=== PATIENT | female | born 1935 | race Caucasian/White ===

== ENCOUNTER 2018-09-28 21:57 | Observation (INO) | payer OTHER, MEDICARE ==
[2018-09-28 22:39] LABS: Absolute Monocytes 1.4 K/uL (0.1-1.3); Absolute Neutrophil 7.5 K/uL (1.8-8.0); Basophils % 0.5 % (0-1.3); Hematocrit 35.1 % (36.0-45.0); Lymphocytes % 9.7 % (15.3-44.8); MPV 8.4 fL (7.6-11.3); Monocytes % 13.7 % (3.3-12.3); RBC Red Blood Cell Count 3.49 M/uL (3.86-4.86)
[2018-09-28 22:44] LABS: Protime INR 1.59
--- NOTE | 2018-09-28 22:57 | EDPHYS ---
Physician Documentation [facility] Name: La Nena Arnold Age: 83 yrs Sex: Female : 1935 Arrival Date: 09/28/2018 Time: 22:00 Bed 3 Private MD: STANISLAV Physician Vipin Yoon HPI: 09/28 22:51 This 83 yrs old Female presents to ER via Wheelchair with complaints of luiz Shortness Of Breath. 22:51 The patient has shortness of breath at rest. Onset: The symptoms/episode began/occurred luiz 3 day(s) ago. Duration: The symptoms are continuous, and are steadily getting worse. The patient's shortness of breath is aggravated by nothing, is alleviated by nothing. Associated signs and symptoms: The patient has no apparent associated signs or symptoms. Severity of symptoms: At their worst the symptoms were. The patient has not experienced similar symptoms in the past. Historical: - Allergies: 22:10 Sulfa (Sulfonamide Antibiotics); ak1 22:10 Plaquenil; ak1 - Home Meds: 22:10 metoprolol tartrate 25 mg Oral tab 1 tab 2 times per day [Active]; apixaban oral 5mg ak1 oral 1 tab 2 times per day [Active]; clonazepam 1 mg Oral tab 1 tab [Active]; imipramine HCl 50 mg Oral tab 2 tabs 2 times per day [Active]; folic acid 1 mg Oral tab 1 tab once daily [Active]; pantoprazole 40 mg oral TbEC 1 tab once daily [Active]; potassium chloride 10 mEq Oral cpER 1 cap once daily [Active]; pravastatin 40 mg oral tab 1 tab once daily [Active]; prolia [Active]; - PMHx: 22:10 afib; Hypertension; Lupus; lymphoma; ak1 - PSHx: 22:10 left knee replacement; ak1 - Immunization history:: Adult Immunizations unknown. - Social history:: Smoking status: Patient/guardian denies using tobacco. - Ebola Screening: : No symptoms or risks identified at this time. - Family history:: not pertinent. ROS: 22:51 Constitutional: Negative for fever, chills, and weight loss, Eyes: Negative for injury, luiz pain, redness, and discharge, ENT: Negative for injury, pain, and discharge, Neck: Negative for injury, pain, and swelling, Respiratory: Negative for shortness of breath, cough, wheezing, and pleuritic chest pain, Abdomen/GI: Negative for abdominal pain, nausea, vomiting, diarrhea, and constipation, Back: Negative for injury and pain, : Negative for injury, bleeding, discharge, and swelling, MS/Extremity: Negative for injury and deformity, Skin: Negative for injury, rash, and discoloration, Neuro: Negative for headache, weakness, numbness, tingling, and seizure, Psych: Negative for depression, anxiety, suicide ideation, homicidal ideation, and hallucinations, Allergy/Immunology: Negative for hives, rash, and allergies, Endocrine: Negative for neck swelling, polydipsia, polyuria, polyphagia, and marked weight changes, Hematologic/Lymphatic: Negative for swollen nodes, abnormal bleeding, and unusual bruising. 22:51 Cardiovascular: Positive for chest pain, palpitations. Exam: 22:51 Constitutional: This is a well developed, well nourished patient who is awake, alert, luiz and in no acute distress. Head/Face: Normocephalic, atraumatic. Eyes: Pupils equal round and reactive to light, extra-ocular motions intact. Lids and lashes normal. Conjunctiva and sclera are non-icteric and not injected. Cornea within normal limits. Periorbital areas with no swelling, redness, or edema. ENT: Nares patent. No nasal discharge, no septal abnormalities noted. Tympanic membranes are normal and external auditory canals are clear. Oropharynx with no redness, swelling, or masses, exudates, or evidence of obstruction, uvula midline. Mucous membranes moist. Neck: Trachea midline, no thyromegaly or masses palpated, and no cervical lymphadenopathy. Supple, full range of motion without nuchal rigidity, or vertebral point tenderness. No Meningismus. Chest/axilla: Normal chest wall appearance and motion. Nontender with no deformity. No lesions are appreciated. Respiratory: Lungs have equal breath sounds bilaterally, clear to auscultation and percussion. No rales, rhonchi or wheezes noted. No increased work of breathing, no retractions or nasal flaring. Abdomen/GI: Soft, non-tender, with normal bowel sounds. No distension or tympany. No guarding or rebound. No evidence of tenderness throughout. Back: No spinal tenderness. No costovertebral tenderness. Full range of motion. Female : Normal external genitalia. Skin: Warm, dry with normal turgor. Normal color with no rashes, no lesions, and no evidence of cellulitis. MS/ Extremity: Pulses equal, no cyanosis. Neurovascular intact. Full, normal range of motion. Neuro: Awake and alert, GCS 15, oriented to person, place, time, and situation. Cranial nerves II-XII grossly intact. Motor strength 5/5 in all extremities. Sensory grossly intact. Cerebellar exam normal. Normal gait. Psych: Awake, alert, with orientation to person, place and time. Behavior, mood, and affect are within normal limits. 22:51 Cardiovascular: Rate: tachycardic, Rhythm: irregularly irregular, Pulses: Pulses are 4+ in bilateral radial, brachial, femoral, popliteal, posterior tibial and and dorsalis pedis arteries.. Heart sounds: normal, normal S1and S2, no S3 or S4, no murmur, no rub, no gallop, Edema: is not appreciated, JVD: is not appreciated. Vital Signs: 22:10 BP 140 / 89; Pulse 152; Resp 18; Temp 98.7(O); Pulse Ox 95% on R/A; Weight 58.06 kg ak1 (R); Height 5 ft. 0 in. (152.40 cm) (R); 23:00 BP 127 / 97; Pulse 149; Resp 30; Pulse Ox 96% on R/A; Pain 0/10; ak1 09/29 00:22 BP 146 / 107; Pulse 111; Resp 25; Pulse Ox 94% on R/A; ak1 00:31 BP 162 / 108; Pulse 115; Resp 27; Pulse Ox 94% on R/A; ak1 00:34 BP 163 / 99; Pulse 113; ak1 01:43 BP 149 / 108; Pulse 106; Resp 26; Pulse Ox 94% on R/A; ak1 03:04 BP 137 / 100; Pulse 104; Resp 22; Temp 98.8; Pulse Ox 98% on 2 lpm NC; Pain 0/10; ak1 09/28 22:10 Body Mass Index 25.00 (58.06 kg, 152.40 cm) ak1 MDM: 09/28 22:12 [facility]:53 Data reviewed: vital signs, nurses notes, lab test result(s), EKG, radiologic studies, luiz plain films. 09/28 22:25 Order name: Basic Metabolic Panel; Complete Time: 23:46 09/28 22:25 Order name: CBC with Diff; Complete Time: 22:53 09/28 22:25 Order name: LFT's; Complete Time: 23:46 09/28 22:25 Order name: Magnesium; Complete Time: 23:46 09/28 22:25 Order name: NT PRO-BNP; Complete Time: 23:46 09/28 22:25 Order name: PT-INR; Complete Time: 22:53 09/28 22:25 Order name: Troponin (emerg Dept Use Only); Complete Time: 23:46 09/28 22:25 Order name: TSH; Complete Time: 23:46 09/28 23:22 Order name: T4 Free; Complete Time: 23:46 [facility] 09/29 00:51 Order name: Urine Culture [facility] 09/29 01:53 Order name: Basic Metabolic Panel [facility] 09/29 01:53 Order name: Basic Metabolic Panel [facility] 09/29 01:53 Order name: CBC with Automated Diff [facility] 09/29 01:53 Order name: CBC with Automated Diff [facility] 09/28 22:25 Order name: XRAY Chest (1 view) 09/28 22:25 Order name: EKG; Complete Time: 22:26 09/28 22:25 Order name: Cardiac monitoring; Complete Time: 22:32 09/28 22:25 Order name: EKG - Nurse/Tech; Complete Time: 22:32 09/28 22:25 Order name: IV Saline Lock; Complete Time: 22:32 09/28 22:25 Order name: Labs collected and sent; Complete Time: 22:32 09/28 22:25 Order name: O2 Per Protocol; Complete Time: 22:32 09/29 01:53 Order name: CONS Physician Consult [facility] 09/29 01:53 Order name: Heart Healthy [facility] 09/29 01:53 Order name: Echo with Doppler [facility] 09/28 22:25 Order name: O2 Sat Monitoring; Complete Time: 22:32 09/28 22:25 Order name: Urine Dipstick-Ancillary (obtain specimen); Complete Time: 00:32 fc Administered Medications: 22:50 Drug: Lopressor 5 mg {Note: 5mg given to hold the other dose per verbal by dr. otf Yoon.} Route: IVP; Site: right antecubital; 22:50 Drug: Digoxin 0.5 mg Route: IVP; Site: right antecubital; ak1 09/29 00:32 Follow up: Response: No adverse reaction ak1 09/28 22:50 Drug: Pepcid 20 mg Route: IVP; Site: right antecubital; ak1 09/29 00:31 Follow up: Response: No adverse reaction ak1 00:32 Drug: Lopressor 5 mg Route: IVP; Site: right antecubital; ak1 01:38 Drug: Rocephin - (cefTRIAXone) 1 grams Route: IVPB; Infused Over: 30 mins; Site: right ak1 antecubital; 01:40 Follow up: IV Status: Completed infusion ak1 01:39 Drug: Lopressor 5 mg Route: IVP; Site: right antecubital; ak1 01:40 Follow up: Response: No adverse reaction ak1 01:39 Drug: Lasix 40 mg Route: IVP; Site: right antecubital; ak1 01:40 Follow up: Response: No adverse reaction ak1 01:39 Drug: Potassium Chloride 20 mEq Route: PO; ak1 01:40 Follow up: Response: No adverse reaction ak1 Disposition: 09/28/18 22:56 Hospitalization ordered by Adrien Huitron for Inpatient Admission. Preliminary diagnosis are Atrial fibrillation and flutter - with rvr, Dyspnea, Unspecified combined systolic (congestive) and diastolic (congestive) heart failure, Pleural effusion in other conditions classified elsewhere, Urinary tract infection, site not specified. - Bed requested for Telemetry/MedSurg (Inpatient). - Status is Inpatient Admission. ak1 - Condition is Fair. - Problem is new. - Symptoms have improved. UTI on Admission? Yes Signatures: Dispatcher [employer] Vipin Clark MD MD cha Chretien, Felicia, RN RN fc Krenek, Amber, RN RN ak1 Garcia, Cindy, RN RN cg Corrections: (The following items were deleted from the chart) 00:46 09/28 22:56 Hospitalization Ordered by Adrien Huitron MD for Inpatient Admission. luiz Preliminary diagnosis is Atrial fibrillation and flutter - with rvr; Dyspnea. Bed requested for Telemetry/MedSurg (Inpatient). Status is Inpatient Admission. Condition is Fair. Problem is new. Symptoms have improved. UTI on Admission? No. luiz 09/29 00:51 00:46 09/28/2018 22:56 Hospitalization Ordered by Adrien Huitron MD for Inpatient luiz Admission. Preliminary diagnosis is Atrial fibrillation and flutter - with rvr; Dyspnea; Unspecified combined systolic (congestive) and diastolic (congestive) heart failure; Pleural effusion in other conditions classified elsewhere. Bed requested for Telemetry/MedSurg (Inpatient). Status is Inpatient Admission. Condition is Fair. Problem is new. Symptoms have improved. UTI on Admission? No. luiz 01:39 00:51 09/28/2018 22:56 Hospitalization Ordered by Adrien Huitron MD for Inpatient cg Admission. Preliminary diagnosis is Atrial fibrillation and flutter - with rvr; Dyspnea; Unspecified combined systolic (congestive) and diastolic (congestive) heart failure; Pleural effusion in other conditions classified elsewhere; Urinary tract infection, site not specified. Bed requested for Telemetry/MedSurg (Inpatient). Status is Inpatient Admission. Condition is Fair. Problem is new. Symptoms have improved. UTI on Admission? Yes. luiz 03:59 01:39 09/28/2018 22:56 Hospitalization Ordered by Adrien Huitron MD for Inpatient ak1 Admission. Preliminary diagnosis is Atrial fibrillation and flutter - with rvr; Dyspnea; Unspecified combined systolic (congestive) and diastolic (congestive) heart failure; Pleural effusion in other conditions classified elsewhere; Urinary tract infection, site not specified. Bed requested for Telemetry/MedSurg (Inpatient). Status is Inpatient Admission. Condition is Fair. Problem is new. Symptoms have improved. UTI on Admission? Yes. cg
--- NOTE | 2018-09-28 22:57 | ER ---
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 Transition of care: patient was not received from another setting of care. Onset of symptoms is unknown. Risk Assessment: Do you want to hurt yourself or someone else? Patient reports no desire to harm self or others. Initial Sepsis Screen: Does the patient meet any 2 criteria? No. Patient's initial sepsis screen is negative. Does the patient have a suspected source of infection? No. Patient's initial sepsis screen is negative. Care prior to arrival: None. 22:01 Method Of Arrival: Wheelchair ak1 22:01 Acuity: DINO 3 ak1 Triage Assessment: 23:01 General: Appears in no apparent distress. Behavior is calm, cooperative. 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 Historical: - Allergies: 22:10 Sulfa (Sulfonamide Antibiotics); ak1 22:10 Plaquenil; ak1 - Home Meds: 22:10 metoprolol tartrate 25 mg Oral tab 1 tab 2 times per day [Active]; apixaban oral 5mg ak1 oral 1 tab 2 times per day [Active]; clonazepam 1 mg Oral tab 1 tab [Active]; imipramine HCl 50 mg Oral tab 2 tabs 2 times per day [Active]; folic acid 1 mg Oral tab 1 tab once daily [Active]; pantoprazole 40 mg oral TbEC 1 tab once daily [Active]; potassium chloride 10 mEq Oral cpER 1 cap once daily [Active]; pravastatin 40 mg oral tab 1 tab once daily [Active]; prolia [Active]; - PMHx: 22:10 afib; Hypertension; Lupus; lymphoma; ak1 - PSHx: 22:10 left knee replacement; ak1 - Immunization history:: Adult Immunizations unknown. - Social history:: Smoking status: Patient/guardian denies using tobacco. - Ebola Screening: : No symptoms or risks identified at this time. - Family history:: not pertinent. Screenin:58 Abuse screen: Denies threats or abuse. Denies injuries from another. Nutritional ak1 screening: No deficits noted. Tuberculosis screening: No symptoms or risk factors identified. Fall Risk None identified. Assessment: 23:00 General: Appears in no apparent distress. Pain: Denies pain. Neuro: No deficits noted. ak1 Cardiovascular: Rhythm is sinus tachycardia. Respiratory: Airway is patent Respiratory effort is even, unlabored, Breath sounds are clear. GI: No signs and/or symptoms were reported involving the gastrointestinal system. : No signs and/or symptoms were reported regarding the genitourinary system. EENT: No signs and/or symptoms were reported regarding the EENT system. Derm: No signs and/or symptoms reported regarding the dermatologic system. Musculoskeletal: No deficits noted. 09/29 00:23 Reassessment: 5mg Lopressor given IV (2nd dose). ak1 00:56 Reassessment: Patient appears in no apparent distress at this time. Patient and/or ak1 family updated on plan of care and expected duration. Pain level reassessed. pt ambulated unassisted to bedside commode. Patient states symptoms have improved. 01:42 Reassessment: Patient appears in no apparent distress at this time. No changes from ak1 previously documented assessment. Patient and/or family updated on plan of care and expected duration. Pain level reassessed. Patient is alert, oriented x 3, equal unlabored respirations, skin warm/dry/pink. 02:15 Reassessment: pt up to bedside commode, pt increased SOB with ambulation. pt placed on ak1 oxygen 2L NC. 02:41 Reassessment: resting with eyes closed, resp even an unlabored. ak1 Vital Signs: 09/28 22:10 BP 140 / 89; Pulse 152; Resp 18; Temp 98.7(O); Pulse Ox 95% on R/A; Weight 58.06 kg ak1 (R); Height 5 ft. 0 in. (152.40 cm) (R); 23:00 BP 127 / 97; Pulse 149; Resp 30; Pulse Ox 96% on R/A; Pain 0/10; ak1 09/29 00:22 BP 146 / 107; Pulse 111; Resp 25; Pulse Ox 94% on R/A; ak1 00:31 BP 162 / 108; Pulse 115; Resp 27; Pulse Ox 94% on R/A; ak1 00:34 BP 163 / 99; Pulse 113; ak1 01:43 BP 149 / 108; Pulse 106; Resp 26; Pulse Ox 94% on R/A; ak1 03:04 BP 137 / 100; Pulse 104; Resp 22; Temp 98.8; Pulse Ox 98% on 2 lpm NC; Pain 0/10; ak1 09/28 22:10 Body Mass Index 25.00 (58.06 kg, 152.40 cm) [facility] ED Course: 09/28 22:00 Patient arrived in ED. ag3 22:05 Triage completed. ak1 22:10 Arm band placed on Patient placed in an exam room, on a stretcher. [facility] 22:12 Vipin Yoon MD is Attending Physician. [facility] 22:54 XRAY Chest (1 view) In Process Unspecified. EDMS 22:54 Adrien Huitron MD is Hospitalizing Provider. [facility] 22:58 Zenaida Rasmussen, TIM is Primary Nurse. ak1 22:58 Patient has correct armband on for positive identification. Bed in low position. Call ak1 light in reach. Side rails up X2. Adult w/ patient. tavern car attendant on. Pulse ox on. NIBP on. 09/29 00:57 No provider procedures requiring assistance completed. ak1 01:42 Patient admitted, IV remains in place. ak Administered Medications: 09/28 22:50 Drug: Lopressor 5 mg {Note: 5mg given to hold the other dose per verbal by dr. otf Yoon.} Route: IVP; Site: right antecubital; 22:50 Drug: Digoxin 0.5 mg Route: IVP; Site: right antecubital; oh1 09/29 00:32 Follow up: Response: No adverse reaction [facility] 09/28 22:50 Drug: Pepcid 20 mg Route: IVP; Site: right antecubital; oh1 09/29 00:31 Follow up: Response: No adverse reaction oh1 00:32 Drug: Lopressor 5 mg Route: IVP; Site: right antecubital; ak1 01:38 Drug: Rocephin - (cefTRIAXone) 1 grams Route: IVPB; Infused Over: 30 mins; Site: right ak1 antecubital; 01:40 Follow up: IV Status: Completed infusion ak1 01:39 Drug: Lopressor 5 mg Route: IVP; Site: right antecubital; ak1 01:40 Follow up: Response: No adverse reaction ak1 01:39 Drug: Lasix 40 mg Route: IVP; Site: right antecubital; ak1 01:40 Follow up: Response: No adverse reaction ak1 01:39 Drug: Potassium Chloride 20 mEq Route: PO; ak1 01:40 Follow up: Response: No adverse reaction ak1 Outcome: 09/28 22:56 Decision to Hospitalize by Provider. [facility] 09/29 01:42 Condition: stable ak1 Instructed on the need for admit. 03:46 Admitted to Tele accompanied by tech, via wheelchair, room 211, with oxygen, with ak1 chart, Report called to Annette Roca RN 03:59 Patient left the ED. ak1 Signatures: Dispatcher [employer] Vipin Clark MD MD cha Krenek, Amber RN RN ak1 Kate Rick3
[2018-09-28 23:08] LABS: Albumin 3.7 g/dL (3.4-5.0); Bilirubin Direct 0.1 mg/dL (0-0.2); Bilirubin Total 0.3 mg/dL (0.2-1.0); Potassium 3.7 mmol/L (3.5-5.1); Protein, Total 6.8 g/dL (6.4-8.2); Troponin (Emerg Dept Use Only) 0.05 ng/mL (0.0-0.045)
[2018-09-28] MEDS ORDERED: METOPROLOL TARTRATE 5 MG/5 ML INJ IV ONE (23:15)
[2018-09-28] MEDS ORDERED: DIGOXIN 0.25 MG/ML AMP ONE (23:15)
[2018-09-28] MEDS ORDERED: FAMOTIDINE 20 MG/2 ML VIAL IV ONE (23:15)
[2018-09-28 23:20] LABS: Thyroid Stimulating Hormone 6.21 uIU/mL (0.360-3.740)
[2018-09-29] MEDS ORDERED: FUROSEMIDE 40 MG/4 ML VIAL ONE (01:24)
[2018-09-29] MEDS ORDERED: POTASSIUM CL SA 10 MEQ TAB PO ONE (01:24)
[2018-09-29] MEDS ORDERED: CEFTRIAXONE/SWI 1gm 1 GM/10 ML SYR ONE (01:24)
--- NOTE | 2018-09-29 01:44 | P.HP ---
Certification for Inpatient Patient admitted to: Inpatient With expected LOS: >2 Midnights Practitioner: I am a practitioner with admitting privileges, knowledge of patient current condition, hospital course, and medical plan of care. Services: Services provided to patient in accordance with Admission requirements found in Title 42 Section 412.3 of the Code of Federal Regulations Patient History Date of Service: 09/29/18 Reason for admission: A.Fib with RVR History of Present Illness: Ms Arnold is an 83 years old woman with history of HTN, Lupus, Lymphoma, A.fib, recently diagnosed, who start 3 days ago with progressive SOB. She noticed specially at night when lay in bed. She has been using 3 pillows at night to sleep due to her SOB. She denied chest pain, no palpitations. She denied fever, chill but has had sweating episodes at night. at arrival EKG showed A.Pawel with RVR, at 152 bpm. CXR remarkable for venous fluid overload. Lab work shows normal WBC count, elevated proBNP, TSH. She was treated with IV Lasix and Beta vijaya, improving significantly her symptosm. HR is currently at 105 bpm. Allergies azathioprine Adverse Reaction (Verified 09/29/18 00:30) Weakness hydroxychloroquine [From Plaquenil] Adverse Reaction (Verified 09/29/18 00:30) Itching Sulfa (Sulfonamide Antibiotics) Adverse Reaction (Verified 09/29/18 00:30) Itching/Hives/Rash Home medications list reviewed: Yes Home Medications: Apixaban [Eliquis] 5 mg PO BID 09/29/18 Folic Acid 1 mg PO DAILY 09/29/18 Imipramine HCl 2 tab PO BID 09/29/18 Metoprolol Tartrate 25 mg PO BID 09/29/18 Pantoprazole Sodium 40 mg PO DAILY 09/29/18 Potassium Chloride 10 meq PO DAILY 09/29/18 Pravastatin Sodium 40 mg PO BEDTIME 09/29/18 clonazePAM [Clonazepam] 1 mg PO BEDTIME 09/29/18 - Past Medical/Surgical History -: A.Fib -: HTN -: lymphoma -: Lupus -: knee replacement - Family History Family History: Reviewed- Non-Contributory - Social History Smoking Status: Never smoker Alcohol use: No CD- Drugs: No Place of Residence: Home Review of Systems 10-point ROS is otherwise unremarkable Physical Examination - Physical Exam General: Alert, In no apparent distress HEENT: Atraumatic, PERRLA, Mucous membr. moist/pink, EOMI, Sclerae nonicteric Neck: Supple, 2+ carotid pulse no bruit, No LAD, Without JVD or thyroid abnormality Respiratory: Normal air movement, Crackles/rales (bibasilar rales) Cardiovascular: Normal S1 S2, Irregular heart rate/rhythm Gastrointestinal: Normal bowel sounds, No tenderness Musculoskeletal: No tenderness Integumentary: No rashes Neurological: Normal speech, Normal strength at 5/5 x4 extr, Normal tone, Normal affect Lymphatics: No axilla or inguinal lymphadenopathy - Studies Laboratory Data (last 24 hrs) 09/28/18 22:25: PT 18.8 H, INR 1.59 09/28/18 22:25: WBC 9.9, Hgb 11.9 L, Hct 35.1 L, Plt Count 268 09/28/18 22:25: Sodium 141, Potassium 3.7, BUN 21 H, Creatinine 1.00, Glucose 140 H, Magnesium 2.0, Total Bilirubin 0.3, AST 36, ALT 43, Alkaline Phosphatase 87 Assessment and Plan - Problems (Diagnosis) (1) Atrial fibrillation with RVR Current Visit: Yes Status: Acute (2) HTN (hypertension) Current Visit: Yes Status: Acute Qualifiers: Hypertension type: essential hypertension Qualified Code(s): I10 - Essential (primary) hypertension (3) Lymphoma Current Visit: Yes Status: Acute Qualifiers: Lymphoma type: unspecified type Lymphoma site: unspecified region Qualified Code(s): C85.90 - Non-Hodgkin lymphoma, unspecified, unspecified site (4) CHF (congestive heart failure) Current Visit: Yes Status: Acute Qualifiers: Heart failure type: unspecified Heart failure chronicity: acute on chronic Qualified Code(s): I50.9 - Heart failure, unspecified - Plan The patient will be admitted to the hospital due to a.fib with RVR in context of CHF. She has improved with IV lasix and beta blockers. Her current HR is 105. Will order ECHO, continue metoprolol PO, IV lasix. Consult Cardiology team. - Advance Directives Does patient have a Living Will: No Does patient have a Durable POA for Healthcare: No - Code Status/Comfort Care Code Status Assessed: Yes Code Status: Full Code
[2018-09-29] MEDS ORDERED: ONDANSETRON 4 MG/2 ML VIAL IV PRN (01:52)
[2018-09-29] MEDS ORDERED: ACETAMINOPHEN 500 MG TAB PO PRN (01:52)
[2018-09-29 04:33] VITALS: O2SAT 98
--- NOTE | 2018-09-29 06:25 | EKG ---
Test Date: 2018-09-28 Test Time: 22:15:30 High Man: MADHAVI MEASUREMENT RESULTS: Intervals: Rate: 153 MD: QRSD: 92 QT: 316 QTc: 504 [place]: P: MD: QRS: 105 T: -41 INTERPRETIVE STATEMENTS: Atrial fibrillation with rapid ventricular response Rightward axis Anterior infarct, age undetermined T wave abnormality, consider inferior ischemia Abnormal ECG No previous ECG available for comparison Electronically Signed On 09-29-18 06:24:55 FARM TRACTOR MECHANIC by William Davies
[2018-09-29 06:29] VITALS: BMI 25.0
[2018-09-29] MEDS ORDERED: clonazePAM 1 MG TAB PO PRN (07:27)
--- NOTE | 2018-09-29 08:46 | RAD REPORT ---
EXAM DESCRIPTION: Shravan Single View09/28/2018 10:55 pm CLINICAL HISTORY: Shortness of breath COMPARISON: none FINDINGS: Small to moderate left and small right pleural effusions are present. Mild bilateral pulmonary opacities. Heart is mildly enlarged. Central venous catheter is in place IMPRESSION: CHF
[2018-09-29] MEDS ORDERED: IMIPRAMINE HCL 25 MG TAB PO SCH (09:00)
[2018-09-29] MEDS ORDERED: METOPROLOL TAR 25 MG TAB PO SCH (09:00)
[2018-09-29] MEDS ORDERED: FUROSEMIDE 40 MG TABLET PO SCH (09:00)
[2018-09-29] MEDS ORDERED: FOLIC ACID 1 MG TABLET PO SCH (09:00)
[2018-09-29] MEDS ORDERED: METOPROLOL TAR 50 MG TAB PO SCH (09:00)
[2018-09-29] MEDS ORDERED: PANTOPRAZOLE 40MG TABLET PO SCH (09:00)
[2018-09-29] MEDS ORDERED: FUROSEMIDE 40 MG/4 ML VIAL IV SCH (09:00)
[2018-09-29] MEDS ORDERED: APIXABAN 5 MG TABLET PO SCH (09:00)
--- NOTE | 2018-09-29 10:08 | RAD REPORT ---
EXAM DESCRIPTION: Shravan Pa And Lat (2 Views)09/29/2018 8:08 am CLINICAL HISTORY: Shortness of breath COMPARISON: September 24, 2018 FINDINGS: Small to moderate left and small right pleural effusions are present. Mild bilateral interstitial lung opacities have partially resolved. The heart is mildly enlarged. Central venous catheter is in place IMPRESSION: Improvement in CHF
--- NOTE | 2018-09-29 12:55 | CON ---
Date of Consultation: 09/29/2018 Reason For Consultation: Atrial fibrillation. History Of Present Illness: Ms. Arnold is an 83-year-old woman. She has a history of atrial fibrilla tion for which she takes Eliquis and metoprolol. She has a history of gastroesophageal reflux diseas e, dyslipidemia, hypertension, lupus, and lymphoma that is in remission. She came in with shortness of breath, was found to have atrial fibrillation at a rate of 109. Troponin was 0.05. Her BNP was 1 2,980. Her TSH was 6.210. Denied any chest pain or syncope. Past Medical History: As stated above. Allergies: TO SULFA, PLAQUENIL, AND AZATHIOPRINE. Medications At Home: Include Eliquis, metoprolol, Protonix, Pravachol. Review of Systems: Negative. Social History: Negative. She lives in [place], [place] that is where she sees a physician for her h eart there. Family History: Noncontributory. Physical Examination: General: She was pleasant, in no acute distress. Vital Signs: Stable. She was in atrial fibrillation at a rate of 80 now. HEENT: Negative. Neck: Supple with no bruit. Chest: Clear to auscultation and percussion on the right. She has some rales of the left base. Cardiac: Revealed atrial fibrillation. Abdomen: Obese but benign. Extremities: Revealed no clubbing or cyanosis. She had trace edema. Diagnostic Data: As stated earlier. Impression And Plan: 1.Chronic atrial fibrillation with rapid ventricular response. I think we need to continue her Eliq uis and increase her metoprolol. 2.Positive troponin, positive BNP. We will get an echocardiogram to rule out congestive heart failu re. She may have diastolic dysfunction based on her atrial fibrillation and hypertension. We will s ee what that shows. Certainly adding an SORAIDA inhibitor and low-dose Lasix may be reasonable. 3.Dyslipidemia, on Pravachol. 4.Gastroesophageal reflux, on Protonix. 5.Lupus. 6.Lymphoma in remission. Following her physician in [place], [place] where she lives. She will foll ow up with him. I did suggest that she should have a stress test in the near future, that can be don e as an outpatient. PURVI/BORIS Voice ID: [id number] Report ID: [id number]
--- NOTE | 2018-09-29 14:18 | P.PN ---
Subjective Date of Service: 09/29/18 Primary Care Provider: Dr. Jaden Naik([place], [place]); Card-Dr. Junior Thomas Chief Complaint: A.Fib with RVR Subjective: Improving Physical Examination - Vital Signs Temperature: 97.1 F Blood Pressure: 181/80 Pulse: 80 Respirations: 16 Pulse Ox (%): 95 - Physical Exam General: Alert, In no apparent distress, Oriented x3, Cooperative HEENT: Atraumatic Neck: Supple Respiratory: Clear to auscultation bilaterally, Normal air movement Cardiovascular: Normal pulses, Regular rate/rhythm Gastrointestinal: Normal bowel sounds, Soft and benign, Non-distended, No tenderness, No masses, No rebound, No guarding Musculoskeletal: No erythema, No tenderness, No warmth Integumentary: No tenderness/swelling, No erythema, No warmth, No cyanosis Neurological: Normal speech, Normal strength at 5/5 x4 extr, Normal tone, Normal affect - Studies Laboratory Data (last 24 hrs) 09/28/18 22:25: PT 18.8 H, INR 1.59 09/28/18 22:25: WBC 9.9, Hgb 11.9 L, Hct 35.1 L, Plt Count 268 09/28/18 22:25: Sodium 141, Potassium 3.7, BUN 21 H, Creatinine 1.00, Glucose 140 H, Magnesium 2.0, Total Bilirubin 0.3, AST 36, ALT 43, Alkaline Phosphatase 87 Medications List Reviewed: Yes Assessment & Plan Discharge Plan: Home Plan to discharge in: 24 Hours Physician Review Additional Text: Impression: Chronic atrial fibrillation with RVR now on normal sinus rhythm Elevated troponin and positive BNP likely underlying chronic diastolic CHF Hypertension Hyperlipidemia GERD History of lupus History of lymphoma in remission Plan: Chronic atrial fibrillation on chronic anti coagulation with RVR now on normal sinus rhythm: Patient now in normal sinus rhythm. Metoprolol has been increased. Patient will need continue with metoprolol and chronic anti coagulation therapy. Will reassess patient this afternoon. If much improved. Patient can be discharged home. Cardiology recommends echocardiogram to evaluate for underlying diastolic CHF. Patient will need to continue with a 1500 cc per day fluid restriction and low-salt diet. Cardiology also recommends the patient follow up with her PCP and nurse informatics educator in [facility] for stress test. Patient will likely be discharged with Lasix daily. Elevated troponin and positive BNP likely underlying chronic diastolic CHF: Obtain echocardiogram to further evaluate. Patient will likely require fluid restriction, SORAIDA or ARB-inhibitor and Lasix at discharge. Hypertension: Continue with current medication. Will add lisinopril for better blood pressure control. Will monitor and adjust appropriately. Metoprolol has been adjusted. Hyperlipidemia: Continue with statin medication. Patient takes Pravachol. GERD: Continue with Protonix. History of lupus: Continue follow up with her PCP and Rheumatology as an outpatient. History of lymphoma in remission: Continue follow up with her PCP and oncology as an outpatient. Time Spent Managing Pts Care (In Minutes): 55
--- NOTE | 2018-09-29 14:36 | P.DS ---
Admission Date: 09/29/18 Discharge Date: 09/29/18 Primary Care Provider: Dr. Jaden Naik([place], [place]); Card-Dr. Junior Thomas Disposition: ROUTINE DISCHARGE Discharge Condition: GOOD Reason for Admission: A.Fib with RVR Consultations: Cardiology-Dr. Palencia Procedures: CXR: FINDINGS: Small to moderate left and small right pleural effusions are present. Mild bilateral interstitial lung opacities have partially resolved. The heart is mildly enlarged. Central venous catheter is in place IMPRESSION: Improvement in CHF ECHO: Final results pending at discharge Medical Problem list: Chronic atrial fibrillation with RVR on chronic anti coagulation therapy now normal sinus rhythm Elevated troponin and positive BNP likely secondary to acute on chronic diastolic CHF Hypertension, on controlled Hyperlipidemia GERD History of lupus History of lymphoma in remission Brief History of Present Illness: 83-year-old female presented emergency room with increasing shortness of breath. Patient with history of chronic atrial fibrillation, hypertension, lupus and lymphoma. Patient found to be in atrial fibrillation with RVR. X- ray shows CHF pattern. Patient admitted for further treatment and evaluation. Hospital Course: Patient presented with shortness of breath. Patient found with chronic atrial fibrillation with RVR on chronic anti coagulation therapy. Patient also had slightly elevation in her troponin and BNP likely related to acute on chronic diastolic CHF. Patient reports recent diagnosis of atrial fibrillation about 2 weeks ago by her flight dynamicist. Patient seen and evaluated by Cardiology in the hospital. Echocardiogram obtained. Cardiology suspects diastolic dysfunction. Patient improved with increased doses of metoprolol. Patient also received IV Lasix with improvement on x-ray. At discharge she is without any significant shortness of breath. She does not require oxygen at discharge. Patient now in normal sinus rhythm rate controlled. At discharge patient will continue with metoprolol 50 mg 1 pill twice daily and Lasix 20 mg daily. Patient will also continue with Eliquis 5 mg 1 pill twice daily. Patient will continue with a 1500 cc per day fluid restriction and low-salt diet. She is to monitor her weight daily. If her weight increases by more than 5 lb she is to contact her flight dynamicist for further recommendation. Adjustment in her medication may be required in the near future. Recommendation is for the patient follow up with her flight dynamicist within 1 week in [place], [place]. ECHO results will need to be followed up by her flight dynamicist. Cardiology also recommends that the patient had a cardiac stress test to be done by her flight dynamicist as an outpatient to further evaluate. Patient has hypertension. Medication adjusted during her stay. Metoprolol was increased. Losartan was added. Patient will continue with metoprolol 50 mg 1 pill twice daily and losartan 50 mg 1 pill daily for better blood pressure control. Recommendation is to maintain blood pressures less 150/80. Further adjustment can be done by cardiology. Patient has hyperlipidemia. Patient will continue with Pravachol 40 mg daily. Patient has GERD. She will continue with Protonix 40 mg 1 pill once daily. Patient with history of lupus and lymphoma currently in remission. Patient to follow up with her specialists and her PCP. Vital Signs/Physical Exam: Temp Pulse Resp BP Pulse Ox 97.1 F 80 16 181/80 H 95 09/29/18 14:20 09/29/18 14:20 09/29/18 14:20 09/29/18 14:20 09/29/18 14:20 General: Alert, In no apparent distress, Oriented x3, Cooperative HEENT: Atraumatic Neck: Supple Respiratory: Clear to auscultation bilaterally, Normal air movement Cardiovascular: Normal pulses, Regular rate/rhythm Gastrointestinal: Normal bowel sounds, Soft and benign, Non-distended, No tenderness, No masses, No rebound, No guarding Musculoskeletal: No erythema, No tenderness, No warmth Integumentary: No tenderness/swelling, No erythema, No warmth, No cyanosis Neurological: Normal speech, Normal strength at 5/5 x4 extr, Normal tone, Normal affect Laboratory Data at Discharge: WBC 9.9 K/uL (4.3-10.9) 09/28/18 22:25 Hgb 11.9 g/dL (12.0-15.0) L 09/28/18 22:25 Hct 35.1 % (36.0-45.0) L 09/28/18 22:25 Plt Count 268 K/uL (152-406) 09/28/18 22:25 PT 18.8 SECONDS (9.5-12.5) H 09/28/18 22:25 INR 1.59 09/28/18 22:25 Sodium 141 mmol/L (136-145) 09/28/18 22:25 Potassium 3.7 mmol/L (3.5-5.1) 09/28/18 22:25 BUN 21 mg/dL (7-18) H 09/28/18 22:25 Creatinine 1.00 mg/dL (0.55-1.3) 09/28/18 22:25 Glucose 140 mg/dL (74-106) H 09/28/18 22:25 Magnesium 2.0 mg/dL (1.8-2.4) 09/28/18 22:25 Total Bilirubin 0.3 mg/dL (0.2-1.0) 09/28/18 22:25 AST 36 U/L (15-37) 09/28/18 22:25 ALT 43 U/L (12-78) 09/28/18 22:25 Alkaline Phosphatase 87 U/L (45-117) 09/28/18 22:25 Troponin I 0.04 ng/mL (0.0-0.045) 09/29/18 12:40 Home Medications: Apixaban [Eliquis] 5 mg PO BID 09/29/18 Folic Acid 1 mg PO DAILY 09/29/18 Furosemide [Lasix] 20 mg PO DAILY #30 tab 09/29/18 Imipramine HCl 2 tab PO BID 09/29/18 Losartan Potassium [Cozaar*] 50 mg PO DAILY #30 tablet 09/29/18 Metoprolol Tartrate [Lopressor*] 50 mg PO BID #60 tab 09/29/18 Pantoprazole Sodium 40 mg PO DAILY 09/29/18 Potassium Chloride 10 meq PO DAILY 09/29/18 Pravastatin Sodium 40 mg PO BEDTIME 09/29/18 clonazePAM [Clonazepam] 1 mg PO BEDTIME 09/29/18 New Medications: Furosemide [Lasix] 20 mg PO DAILY #30 tab Losartan Potassium [Cozaar*] 50 mg PO DAILY #30 tablet Metoprolol Tartrate [Lopressor*] 50 mg PO BID #60 tab Patient Discharge Instructions: 1. Patient will need a follow up with her PCP and flight dynamicist in 1 week to follow up this hospitalization. 2. Patient presented with shortness of breath. Patient found with chronic atrial fibrillation with RVR on chronic anti coagulation therapy. Patient also had slightly elevation in her troponin and BNP likely related to acute on chronic diastolic CHF. Patient seen and evaluated by Cardiology. Echocardiogram obtained. Cardiology suspects diastolic dysfunction. Patient improved with increased doses of metoprolol. Patient also received IV Lasix with improvement on x-ray. At discharge she is without any significant shortness of breath. She does not require oxygen at discharge. Patient now in normal sinus rhythm rate controlled. At discharge patient will continue with metoprolol 50 mg 1 pill twice daily and Lasix 20 mg daily. Patient will also continue with Eliquis 5 mg 1 pill twice daily. Patient will continue with a 1500 cc per day fluid restriction and low-salt diet. She is to monitor her weight daily. If her weight increases by more than 5 lb she is to contact her flight dynamicist for further recommendation. Adjustment in her medication may be required in the near future. Recommendation is for the patient follow up with her flight dynamicist within 1 week in [place], [place]. ECHO results will need to be followed up by her flight dynamicist. Cardiology also recommends that the patient had a cardiac stress test to be done by her flight dynamicist as an outpatient to further evaluate. 3. Patient has hypertension. Medication adjusted during her stay. Metoprolol was increased. Losartan was added. Patient will continue with metoprolol 50 mg 1 pill twice daily and losartan 50 mg 1 pill daily for better blood pressure control. Recommendation is to maintain blood pressures less 150/ 80. Further adjustment can be done by cardiology. 4. Patient has hyperlipidemia. Patient will continue with Pravachol 40 mg daily. 5. Patient has GERD. She will continue with Protonix 40 mg 1 pill once daily. 6. Patient with history of lupus and lymphoma currently in remission. Patient to follow up with her specialists and her PCP. Diet: AHA Activity: Fall precautions Time spent managing pt's care (in minutes): 55
[2018-09-29] MEDS: LOSARTAN POTASSIUM 50 MG TABLET PO SCH ×2 (15:00→16:07)
--- NOTE | 2018-09-29 15:26 | ECHO ---
HEIGHT: 5 ft 0 in WEIGHT: 128 lb 0 oz DATE OF STUDY: 09/29/[address]: Adrien Farmer MD 2-DIMENSIONAL: YES M.MODE: YES DOPPLER: YES COLOR FLOW: YES TDS: NO PORTABLE: NO DEFINITY: NO BUBBLE STUDY: NO DIAGNOSIS: ATRIAL FIBRILLATION WITH RAPID VENTRICULAR RESPONSE CARDIAC HISTORY: CATHERIZATION: NO SURGERY: NO PROSTHETIC VALVE: NO PACEMAKER: NO MEASUREMENTS (cm) DIASTOLIC (NORMALS) SYSTOLIC (NORMALS) IVSd 1.2 (0.6-1.2) LA Diam 4.2 (1.9-4.0) LVEF 40-45% LVIDd 4.4 (3.5-5.7) LVIDs 3.2 (2.0-3.5) %FS 28% LVPWd 1.0 (0.6-1.2) Ao Diam 2.9 (2.0-3.7) 2 DIMENSIONAL ASSESSMENT: RIGHT ATRIUM: NORMAL LEFT ATRIUM: DILATED RIGHT VENTRICLE: NORMAL LEFT VENTRICLE: NORMAL TRICUSPID VALVE: NORMAL MITRAL VALVE: MITRAL ANNULAR CALCIFICATION PULMONIC VALVE: NORMAL AORTIC VALVE: MITRAL ANNULAR CALCIFICATION PERICARDIAL EFFUSION: NONE AORTIC ROOT: NORMAL LEFT VENTRICULAR WALL MOTION: PARADOXICAL SEPTUM. DOPPLER/COLOR FLOW: MILD TRICUSPID REGURGITATION, MITRAL REGURGITATION MILD PULMONARY HYPERTENSION. COMMENTS: EJECTION FRACTION 40-45%- MILD GLOBAL HYPOKINESIS. PARADOXICAL SEPTUM. MITRAL ANNULAR CALCIFICATION. AORTIC SCLEROSIS. LEFT ATRIAL ENLARGEMENT. TECHNOLOGIST: GERRI NATHAN
[2018-09-29 16:47] VITALS: BP 163/75; TEMP 97.5
[2018-09-29] MEDS ORDERED: ATORVASTATIN 10 MG TAB PO SCH (21:00)
== END 2018-09-29 18:12 | disposition home or self-care (01) ==
LOC: ER 21:57 → ERHOLD 09-29 01:32 → INTOOBSV 09-29 01:32 → 2ND 09-29 03:06
PROVIDERS: ADMIT Internal Medicine; ATTEND Internal Medicine
DX: I48.2 Chronic atrial fibrillation (principal); M32.9 Systemic lupus erythematosus, unspecified; I10 Essential (primary) hypertension; K21.9 Gastro-esophageal reflux disease without esophagitis; E78.5 Hyperlipidemia, unspecified; Z88.2 Allergy status to sulfonamides; Z85.72 Personal history of non-Hodgkin lymphomas; Z79.01 Long term (current) use of anticoagulants
CPT/HCPCS: 36415; 71045; 71046; 80048; 80076; 83735; 83880; 84439; 84443; 84484 ×3; 85025; 85610; 87086; 87088; 93005; 93306; 96374; 96375; 97162; 99285; G0378 ×2; J0696; J1160; J1940